=== PATIENT | male | born 1990 | race Caucasian/White ===

== ENCOUNTER 2017-05-04 11:14 | Emergency (ER) | payer OTHER ==
--- NOTE | ~2017-05-04 | CR126 ---
[facility] A Service of [facility] & [facility] RADIOLOGY TEXT RESULTS PATIENT: PUSHPA POTTS JR LOCATION: SED : [birth year] UNIT #: [id number] AGE: [address]: KANE STALEY SEX: M ORDER DR: [id number] [place] [id number] E MR#: [id number] Acc #: [id number] NAME: PUSHPA POTTS JR : 1990 SEX: M STUDY DATE/TIME: 05/04/2017 11:48 UNIT: SED ROOM: STUDY DESCRIPTION: CR Foot Complete Min 3 View Lt Attending Physician: Kane Staley Ordering Physician: Kane Staley Primary Care Physician: Primary Care Physician No MEDICAL IMAGING REPORT This report is preliminary unless electronic signature is present. EXAM Left foot 3 views HISTORY Blister on bottom of foot with throbbing pain, blister for 1.5 weeks; pain for 3 days. FINDINGS 3 views of the left foot demonstrate no fracture or dislocation. No radiopaque foreign body. Soft tissues unremarkable. Joint spaces are maintained. 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 IMPRESSION No acute abnormality identified. 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 Dictated by... Titi Humphreys M.D. THIS IS AN ELECTRONICALLY VERIFIED REPORT Titi Humphreys M.D. at 05/08/2017 10:16 AM ALLAN/ramiro TD: 05/04/2017 17:06 JOB #: [id number] MEDICAL IMAGING REPORT Page 1 of 1
[~2017-05-04 11:14] MED LIST: CIPRO PO; CLEOCIN PO; DAKIN'S MODIF1000 ML EXT; FLOMAX0.4 M1 PO; LORTAB 7.5-5001 TAB PO; NO MEDICATIONS; OXYCODONE HCL5 M1 PO; PHENERGAN PO; PYRIDIUM PO; TYLOX 5-500 CA1 EACH PO; TYLOX 5/500 CAP1 CAP PO; ULTRAM PO
== END 2017-05-04 13:12 | disposition home or self-care (01) ==
LOC: SED 11:14
DX: M25.775 Osteophyte, left foot (principal); L08.89 Other specified local infections of the skin and subcutaneous tissue; F17.200 Nicotine dependence, unspecified, uncomplicated; Z88.0 Allergy status to penicillin; Z88.8 Allergy status to other drugs, medicaments and biological substances
CPT/HCPCS: 73630; 99283

== ENCOUNTER 2017-06-02 02:17 | Emergency (ER) | payer OTHER ==
[~2017-06-02] VITALS: Ht 180.3 cm; Wt 77.1 kg
== END 2017-06-02 03:55 | disposition home or self-care (01) ==
LOC: SED 02:17
DX: S01.81XA Laceration without foreign body of other part of head, initial encounter (principal); F17.210 Nicotine dependence, cigarettes, uncomplicated; Z23 Encounter for immunization; Z88.1 Allergy status to other antibiotic agents; Z88.8 Allergy status to other drugs, medicaments and biological substances; W06.XXXA Fall from bed, initial encounter
CPT/HCPCS: 12011; 90471; 90715; 99283